=== PATIENT | female | born 1985 | race African-American/Black ===

== ENCOUNTER 2017-09-09 16:43 | Day surgery (SDC) | payer BC ==
[~2017-09-09 16:43] MED LIST: DEXAMETHASONE SOD PHOSPHATE INJ 4 MG/1 ML VIAL ONE; GLYCOPYRROLATE INJ 0.4 MG/2 ML VIAL ONE; KETOROLAC TROMETHAMINE 60 MG/2 ML SDV ONE; LIDOCAINE 2% INJ-PF (20 MG/ML) 2 ML AMPUL ONE; METOCLOPRAMIDE HCL INJ/PF 10 MG/2 ML SDV ONE; NEOSTIGMINE METHYLSULFATE 10 MG/10 ML VIAL ONE; ONDANSETRON HCL INJ/PF 4 MG/2 ML SDV ONE; ROCURONIUM BROMIDE INJ 50 MG/5 ML VIAL IV ONE; SUCCINYLCHOLINE CHLORIDE INJ 200 MG/10 ML VIAL ONE
[2017-09-09 17:22] LABS: HEMATOCRIT 26.6 % (36.0-47.0); HEMOGLOBIN 8.5 g/dL (12.0-15.5); MEAN CORPUSCULAR HEMOGLOBIN 19.9 pg (27.0-33.4); MEAN CORPUSCULAR HGB CONC 32.1 g/dL (32.0-36.0); MEAN CORPUSCULAR VOLUME 62 fl (80-97); PLATELET COUNT 360 10^3/uL (150-450); RED BLOOD COUNT 4.29 10^6/uL (3.72-5.28); RED CELL DISTRIBUTION WIDTH 22.9 % (11.5-14.0); WHITE BLOOD COUNT 9.8 10^3/uL (4.0-10.5)
[2017-09-09] MEDS ORDERED: METHYLENE BLUE 50 MG/10 ML AMPULE ONE (17:30)
[2017-09-09] MEDS ORDERED: BUPIVACAINE HCL 0.25 % INJ/PF (2.5 MG/1 ML) 30 ML VIAL ONE (17:30)
[2017-09-09] MEDS ORDERED: FENTANYL CITRATE INJ/PF 100 MCG/2 ML AMPUL ONE (17:42)
[2017-09-09] MEDS ORDERED: MIDAZOLAM 2 MG/2 ML INJ ONE (17:43)
[2017-09-09] MEDS ORDERED: PROPOFOL INJ 200 MG/20 ML VIAL IV ONE (17:44)
[2017-09-09] MEDS ORDERED: ACETAMINOPHEN 100 ML IV ONE (17:44)
[2017-09-09] MEDS ORDERED: DEXMEDETOMIDINE INJ 80 MCG/20 ML VIAL IV ONE (17:50)
[2017-09-09] MEDS ORDERED: ONDANSETRON 4 MG TAB.RAPDIS SL PRN (19:22)
[2017-09-09] MEDS ORDERED: OXYCODONE-ACETAMINOPHEN 5-325 MG TABLET PO PRN (19:22)
[2017-09-09] MEDS ORDERED: MORPHINE SULFATE 10 MG/ML INJ IV PRN (19:28)
[2017-09-09] MEDS ORDERED: MEPERIDINE HCL/PF INJ 25 MG/1 ML DISP.SYRIN IV PRN (19:28)
[2017-09-09] MEDS ORDERED: FENTANYL CITRATE INJ/PF 100 MCG/2 ML AMPUL IV PRN ×3 (19:28)
[2017-09-09] MEDS ORDERED: ONDANSETRON HCL INJ/PF 4 MG/2 ML SDV IV PRN (19:28)
[2017-09-09] MEDS ORDERED: DIPHENHYDRAMINE HCL 50 MG/ML VIAL IV PRN (19:28)
[2017-09-09] MEDS ORDERED: PROMETHAZINE HCL INJ 25 MG/1 ML VIAL IV PRN ×2 (19:28)
--- NOTE | 2017-09-09 19:59 | OPERATIVE REPORT E ---
Operative Report NAME: LYSSA TYLER : 1985 AGE: 31Y DATE OF SURGERY: 09/09/2017 ROOM: PREOPERATIVE DIAGNOSIS: RIGHT ECTOPIC . POSTOPERATIVE DIAGNOSIS: RIGHT ECTOPIC . OPERATION: Diagnostic laparoscopy with a partial right salpingectomy. ESTIMATED BLOOD LOSS: Less than 10 mL. TISSUE REMOVED OR ALTERED: Ectopic material and partial right tube. ANESTHESIA: General. PROCEDURE: Patient was placed in a dorsal lithotomy position, prepped and draped in the usual sterile fashion. A speculum was placed. The cervix was visualized and grasped with a single-tooth tenaculum. Hulka tenaculum was placed and single-tooth tenaculum was removed. Pelvic catheter was placed. A subumbilical midline incision was made. Trocars introduced with insufflation of the abdomen and introduction of laparoscope. There was a small amount of blood in the cul-de-sac and over the top of the uterus. A large ectopic was noted on the right and there was some blood spilling from the fimbria. A second puncture was made on the left and an 11-12 was introduced, and a third on the right, and a 5 was introduced. Using the harmonic scalpel, the portion of the right tube was removed. It was placed in a *------* sack and brought out through the left port. The left port then, fascia was closed with running suture of 0 Vicryl and the skin with subcuticular stitch of 4-0 Vicryl. The abdomen was reinflated and the pelvis irrigated with normal saline and hemostasis was noted. Laparoscope was removed and abdomen deflated. Trocar sleeves removed. The incisions closed with 4-0 Vicryl in a running subcutaneous stitch. All counts correct. She tolerated well. *------*. She was taken to recovery in good condition. DICTATING PHYSICIAN: Jadiel SANTORO M.D. [id number] PHY#: [id number] ID: [id number] JOB#: [id number] ACCT: [id number] cc:Jadiel SANTORO M.D. >
[2017-09-09 20:31] VITALS: BP 104/58
[2017-09-09] MEDS ORDERED: IBUPROFEN 800 MG TABLET PO SCH (22:00)
== END 2017-09-09 21:58 | disposition home or self-care (01) ==
LOC: OROUT 16:43 → 2S 16:43 → OROUT 21:58
PROVIDERS: ATTEND Obstetrics & Gynecology Gynecology
PROC: 0UT54ZZ Resection of Right Fallopian Tube, Percutaneous Endoscopic Approach (ICD-10-PCS; 2017-09-09)
PROC: 10T24ZZ Resection of Products of Conception, Ectopic, Percutaneous Endoscopic Approach (ICD-10-PCS; principal; 2017-09-09 17:15)
DX: O00.90 Unspecified ectopic pregnancy without intrauterine pregnancy (principal); R10.2 Pelvic and perineal pain; I50.9 Heart failure, unspecified; E20.1 Pseudohypoparathyroidism; E66.9 Obesity, unspecified; Z68.37 Body mass index [BMI] 37.0-37.9, adult; Z91.040 Latex allergy status; Z88.0 Allergy status to penicillin
CPT/HCPCS: 36415; 85027; 88305 ×2; 59151; J2250; J3490 ×3; J1100; J1885; J3010; J2765; J0330; J2405; J2704; J0131; 840; Q9968

== ENCOUNTER → 2019-11-10 | Outpatient (CLI) | payer BC ==
--- NOTE | 2019-11-10 15:03 | RADIOLOGY REPORT (SQ) ---
EXAM DESCRIPTION: HYSTEROSALPINGOGRAM; HYSTERO CATH/INJECTION COMPLETED DATE/TIME: 11/10/2019 2:04 pm REASON FOR STUDY: N97.9 FEMALE INFERTILITY, UNSPECIFIED N97.9 FEMALE INFERTILITY, UNSPECIFIED COMPARISON: None. PROCEDURE: PRE-PROCEDURE: Procedure was explained to the patient. She was told to expect cramping du ring the procedure, and possible spotting post procedure. PROCEDURE: The cervix was prepped in sterile fashion. Under direct visual inspection, the cervix was cannulated with the hysterosalpingogram catheter and contrast injected. TECHNIQUE: Temporal fluoroscopic images acquired during the procedure stored to PACS. FLUOROSCOPY TIME: 7 second 9 images saved to PACS. LIMITATIONS: None. FINDINGS: UTERUS: No identified anomalies. No synechia. RIGHT ADNEXA: No contrast in fallopian tube. LEFT ADNEXA: Contrast limited to the isthmus. More lateral tube is occluded. No spill. POST PROCEDURE: The patient tolerated the procedure with no adverse effects. IMPRESSION: Bilateral occluded fallopian tubes. COMMENT: Study performed by and interpreted by the radiologist. Quality ID 145: Final reports for procedures using fluoroscopy that document radiation exposure renay hanh, or exposure time and number of fluorographic images (if radiation exposure indices are not avail able) TECHNICAL DOCUMENTATION: JOB ID: [id number] 2010 [employer]- All Rights Reserved Reading location - IP/workstation name: [email or web address]
--- NOTE | 2019-11-10 15:03 | RADIOLOGY REPORT (SQ) ---
EXAM DESCRIPTION: HYSTEROSALPINGOGRAM; HYSTERO CATH/INJECTION COMPLETED DATE/TIME: 11/10/2019 2:04 pm REASON FOR STUDY: N97.9 FEMALE INFERTILITY, UNSPECIFIED N97.9 FEMALE INFERTILITY, UNSPECIFIED COMPARISON: None. PROCEDURE: PRE-PROCEDURE: Procedure was explained to the patient. She was told to expect cramping du ring the procedure, and possible spotting post procedure. PROCEDURE: The cervix was prepped in sterile fashion. Under direct visual inspection, the cervix was cannulated with the hysterosalpingogram catheter and contrast injected. TECHNIQUE: Temporal fluoroscopic images acquired during the procedure stored to PACS. FLUOROSCOPY TIME: 7 second 9 images saved to PACS. LIMITATIONS: None. FINDINGS: UTERUS: No identified anomalies. No synechia. RIGHT ADNEXA: No contrast in fallopian tube. LEFT ADNEXA: Contrast limited to the isthmus. More lateral tube is occluded. No spill. POST PROCEDURE: The patient tolerated the procedure with no adverse effects. IMPRESSION: Bilateral occluded fallopian tubes. COMMENT: Study performed by and interpreted by the radiologist. Quality ID 145: Final reports for procedures using fluoroscopy that document radiation exposure renay hanh, or exposure time and number of fluorographic images (if radiation exposure indices are not avail able) TECHNICAL DOCUMENTATION: JOB ID: [id number] 2010 [employer]- All Rights Reserved Reading location - IP/workstation name: [email or web address]
== END ==
LOC: RAD 12:55
PROVIDERS: ATTEND Nurse Practitioner Primary Care
DX: N97.9 Female infertility, unspecified (principal)
CPT/HCPCS: 58340; 74740